=== PATIENT | male | born 1970 | race African-American/Black ===

== ENCOUNTER 2016-10-26 18:01 | Emergency (ER) | payer MEDICAID ==
[~2016-10-26] VITALS: Ht 180.3 cm; Wt 108.0 kg
[2016-10-26 20:59] LABS: Albumin 3.9 g/dL (3.4-5.0); Anion Gap 11 (5-15); Aspartate Aminotransferase 21 U/L (15-37); BUN/Creatinine Ratio 11.5; Blood Urea Nitrogen 17 mg/dL (7-18); Calcium 8.9 mg/dL (8.5-10.1); Carbon Dioxide 26 mmol/L (21-32); Chloride 109 mmol/L (98-107); GFR African American 66 mL/min; GFR Non-African American 54 mL/min; Glucose 80 mg/dL (74-106); Magnesium 2.6 mg/dL (1.6-2.6); Sodium 146 mmol/L (136-145)
[2016-10-26 21:03] LABS: Alkaline Phosphatase 112 U/L (45-117); Bilirubin, Total 0.4 mg/dL (0.2-1.0); Total Protein 8.1 g/dL (6.4-8.2)
[2016-10-27 03:38] LABS: Basophils # (auto) 0 uL; Basophils % (auto) 0.3 % (0.0-2.0); CONDITION Y; Eosinophils # (auto) 0.3 uL; Eosinophils % (auto) 2.3 % (0.0-7.0); Hematocrit 44.4 % (41.0-53.0); Lymphocytes # (auto) 1.3 uL; Lymphocytes % (auto) 11.9 % (10.0-50.0); Mean Corpuscular Hemoglobin 28.1 pg (28.0-32.0); Mean Corpuscular Hgb Conc. 33.8 g/dL (32.0-36.0); Mean Corpuscular Volume 83.2 fL (80.0-100.0); Mean Platelet Volume 7.3 fL (7.4-10.4); Monocytes # (auto) 0.9 uL; Monocytes % (auto) 8.7 % (0.0-12.0); Neutrophils # (auto) 8.3 uL; Neutrophils % (auto) 76.8 % (37.0-80.0); Platelet Count (auto) 262 10^3/uL (140-450); Red Cell Distribution Width 14.8 % (11.6-16.0); White Blood Cell 10.9 10^3/uL (4.4-10.8)
[2016-10-27] MEDS ORDERED: HYDROcodone-ACET 10/325MG TAB PO ONE (03:45)
[2016-10-27 05:37] VITALS: BP 120/78
== END 2016-10-27 05:57 | disposition home or self-care (01) ==
LOC: ER 18:12
DX: S16.1XXA Strain of muscle, fascia and tendon at neck level, initial encounter (principal); S39.012A Strain of muscle, fascia and tendon of lower back, initial encounter; R51 Headache; J45.909 Unspecified asthma, uncomplicated; F17.210 Nicotine dependence, cigarettes, uncomplicated; M19.90 Unspecified osteoarthritis, unspecified site; X58.XXXA Exposure to other specified factors, initial encounter; Y93.89 Activity, other specified; Y92.89 Other specified places as the place of occurrence of the external cause; Y99.8 Other external cause status
CPT/HCPCS: 36415; 70450; 72125; 72131; 80053; 83735; 84484; 85025; 93005

== ENCOUNTER 2016-11-03 20:59 | Emergency (ER) | payer MEDICAID ==
[~2016-11-03] VITALS: Ht 180.3 cm; Wt 106.1 kg
[2016-11-04 00:20] VITALS: BP 123/79
[2016-11-04] MEDS ORDERED: KETOROLAC TROMETH 60MG/2ML VIAL IM ONE (00:30)
== END 2016-11-04 00:44 | disposition home or self-care (01) ==
LOC: ER 21:10
DX: M54.5 Low back pain (principal); M19.90 Unspecified osteoarthritis, unspecified site; J45.909 Unspecified asthma, uncomplicated; F20.9 Schizophrenia, unspecified; F31.9 Bipolar disorder, unspecified; F17.210 Nicotine dependence, cigarettes, uncomplicated
CPT/HCPCS: 96372; 99283; J1885